=== PATIENT | female | born 1975 | race Caucasian/White ===

== ENCOUNTER 2017-11-08 20:38 | Emergency (ER) | payer SELFPAY ==
[2017-11-08 22:14] LABS: ABS Basophils 0 10^3/ul (0-0.2); ABS Eosinophils 0.1 10^3/ul (0-0.6); ABS Lymphocytes 1.8 10^3/ul (1.0-4.8); ABS Monocytes 0.7 10^3/ul (0-0.8); ABS Neutrophils 4.6 10^3/ul (1.5-7.7); ABS Nucleated RBC 0 10^3/ul; Eosinophil % 1.2 % (0-6); Hematocrit 35 % (35-47); Lymphocyte % 24.8 % (25-47); Mean Corpuscular HGB Conc 35 g/dl (31-36); Mean Corpuscular Hemoglobin 32 pg (27-31); Mean Corpuscular Volume 92 fL (80-97); Mean Platelet Volume 9 um3 (7.4-10.4); Nucleated Red Blood Cells % 0; Platelet Count 198 10^3/ul (150-450); Red Blood Count 3.77 10^6/ul (4.0-5.4); Red Cell Distribution Width 13 % (10.5-15); White Blood Count 7.2 10^3/ul (3.5-10.8)
[2017-11-08 22:28] LABS: EGFR Non-African American 76.1 (>60)
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
[2017-11-08] MEDS ORDERED: Iohexol 300* (CONTRAST) 10 ML SDV IV ONE (23:27)
[2017-11-09 00:25] VITALS: BP 111/71
--- NOTE | 2017-11-09 07:29 | RAD ---
Indication: Neck pain. CT of the cervical spine was obtained in the axial plane. Sagittal and coronal reconstructed images were obtained. C1 ring is intact. There is no fracture. The vertebral bodies appear normal in height. No fracture is identified. At C2-C3 there is no disc protrusion noted. No central or foraminal stenosis is noted. At C3-C4 spondylitic ridge flattens the thecal sac. No central foraminal stenosis is noted. At C4-C5 there is no disc protrusion. No central or foraminal stenosis is noted. C5-C6 spondylitic ridge with broad-based protrusion flattens the thecal sac. Left uncovertebral joint hypertrophy narrows the left foramen. At C6-C7 and C7-T1 disc spaces are well-preserved. No focal protrusion is identified. IMPRESSION: No fracture of the cervical spine is noted. Degenerative disc disease at C5-C6 is noted.
--- NOTE | 2017-11-09 07:52 | RAD ---
INDICATION: Left shoulder injury. TECHNIQUE: 4 views of the left shoulder were obtained. FINDINGS: The bones are in normal alignment. Joint spaces appear maintained. There is a small area of increased density which projects lateral to the humerus which moves significantly on the additional images and likely external to the patient. No acute fracture is seen. Joint spaces appear maintained. IMPRESSION: NO EVIDENCE FOR FRACTURE, IF THE PATIENT'S SYMPTOMS PERSIST RECOMMEND FOLLOW-UP IMAGING.
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
== END 2017-11-09 00:24 | disposition home or self-care (01) ==
LOC: ED 20:38
DX: M54.2 Cervicalgia (principal); R07.9 Chest pain, unspecified; M25.512 Pain in left shoulder; V49.40XA Driver injured in collision with unspecified motor vehicles in traffic accident, initial encounter; Y92.410 Unspecified street and highway as the place of occurrence of the external cause; M50.322 Other cervical disc degeneration at C5-C6 level; Z88.0 Allergy status to penicillin
CPT/HCPCS: 36415; 71260; 72125; 74177; 80053; 85025; 99282; Q9967

== ENCOUNTER 2017-11-29 17:55 | Emergency (ER) | payer BC ==
--- NOTE | 2017-11-29 19:13 | RAD ---
INDICATION: Low back and left leg pain. COMPARISON: Comparison is made with a prior CT of the lumbar spine from August 03, 2014. TECHNIQUE: Contiguous axial sections were obtained beginning above the T12 vertebra and continuing through the L5-S1 disc space. Images were reconstructed in the sagittal and coronal planes. FINDINGS: The vertebra are normal alignment. No fracture is seen. There are defects in the inferior endplate of the L4 vertebral body and superior and inferior endplates of the L5 vertebral body which are unchanged suggestive of prominent Schmorl's nodes. There is spina bifida occulta at S1 level. At the L2-L3 level there is a mild broad-based disc bulge. No significant spinal canal narrowing is present. There is mild neural foraminal narrowing on the left side. At the L3-L4 level there is no evidence for disc bulge or herniation. No spinal canal or neural foraminal narrowing is seen. At the L4-L5 level there is a mild broad-based disc bulge and mild hypertrophic changes within the facet joints. No significant spinal canal narrowing is present. There is mild bilateral neural foraminal narrowing. At the L5-S1 level there is a mild broad-based disc bulge. There are mild hypertrophic changes within the facet joints. No significant spinal canal narrowing is present. There is mild neural foraminal narrowing on the left side. IMPRESSION: MILD LUMBAR SPONDYLOSIS DESCRIBED.
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
[2017-11-29 20:16] VITALS: BP 103/68
== END 2017-11-29 20:15 | disposition home or self-care (01) ==
LOC: ED 17:55
DX: M54.5 Low back pain (principal); R20.2 Paresthesia of skin; M47.9 Spondylosis, unspecified
CPT/HCPCS: 72131; 99282

== ENCOUNTER → 2018-08-22 21:47 | Emergency (ER) | payer BC ==
[2018-08-22 21:54] VITALS: BP 126/79
== END | disposition left against medical advice (07) ==
LOC: ED 21:47
DX: R07.89 Other chest pain (principal); M79.602 Pain in left arm; Z53.21 Procedure and treatment not carried out due to patient leaving prior to being seen by health care provider
CPT/HCPCS: 93005